=== PATIENT | male | born 1990 | race African-American/Black ===

== ENCOUNTER 2016-07-29 03:39 | Emergency (ER) | payer SELFPAY ==
[~2016-07-29] VITALS: Ht 172.7 cm; Wt 60.0 kg
[2016-07-29 03:40] VITALS: BP 117/69; PULSE 79; RESP 16; TEMP 98.7; O2SAT 99
[2016-07-29 04:16] VITALS: BP 131/92; PULSE 77; RESP 18; O2SAT 99
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
== END 2016-07-29 06:57 | disposition home or self-care (01) ==
LOC: NEPE 03:39
DX: S02.80XA Fracture of other specified skull and facial bones, unspecified side, initial encounter for closed fracture (principal); Y04.2XXA Assault by strike against or bumped into by another person, initial encounter; Z72.0 Tobacco use
CPT/HCPCS: 70450; 70486; 99285